=== PATIENT | male | born 1945 | race Caucasian/White ===

== ENCOUNTER 2018-05-01 02:53 | Emergency (ER) | payer OTHER, MEDICARE ==
[~2018-05-01] VITALS: Ht 182.9 cm; Wt 86.6 kg
[2018-05-01 03:04] VITALS: TEMP 36.9; Ht 182.9 cm; Wt 86.6 kg
--- NOTE | 2018-05-01 03:34 | EMERGENCY ROOM VISIT NOTE ---
History Report prepared by Jules: Javan Camargo Under the Supervision of: Dr. Sylvie Curtis D.O. First contact with patient: 03:21 Chief Complaint: ARM PAIN Stated Complaint: SEVERE PAIN, HEMATOMA RT ARM History of Present Illness The patient is a 73 year old male who presents to the Emergency Room with complaints of constant right arm pain beginning on 04/10/2018. The patient states that he has a history of lymphoma which causes him to have a weak right leg. He notes that he fell on 04/10/2018 and then again on 04/21/2018. He reports that after the second fall, his right arm began to swell. The patient states that he saw an orthopedist on 04/23/2018 and was told that he tore the flexor muscles to his 4th and 5th fingers. He notes that he cannot extend the 4th and 5th fingers on his right hand. He reports that his 4th and 5th fingers on his right hand feel colder than the others. The patient states that his right arm pain and swelling has been worsening over the last day. He notes that he is concerned about compartment syndrome, prompting his visit to the emergency department this morning. He rates his pain as a 9/10. He denies any right upper arm pain. He notes that he takes Coumadin for his atrial fibrillation. He reports that he last had his INR checked on 04/09/2018. The patient states that his INR was 2.2 at that time. He notes that he had a pacemaker placed on 03/08/2018. Source of History: patient Onset: 04/10/2018 Position: arm (right) Symptom Intensity: 9/10 Timing: constant Note: The patient also complains of a weak right leg, right arm swelling, and he states that his 4th and 5th fingers on his right hand are colder than his other fingers. He denies any right upper arm pain. Review of Systems See HPI for pertinent positives & negatives. A total of 10 systems reviewed and were otherwise negative. Past Medical & Surgical Medical Problems: (1) Atrial fibrillation (2) Fall (3) Inguinal hernia (4) Lymphoma (5) Pacemaker Surgical Problems: (1) History of meniscectomy of left knee (2) History of orchiectomy (3) History of tonsillectomy Family History Cancer Diabetes mellitus Gallbladder disease Heart disease Hypertension Social History Smoking Status: Former Smoker Marital Status: Housing Status: lives with family, lives with significant other Occupation Status: retired Current/Historical Medications Scheduled Atorvastatin (Lipitor), 40 MG PO DAILY Cholecalciferol (Vitamin D3), 1 TAB PO DAILY Digoxin (Lanoxin), 2 TAB PO DAILY Metoprolol Succ (Toprol Xl) (Toprol-Xl), 50 MG PO DAILY Testosterone (Androgel Pump), 40.5 MG TOP UD Warfarin Sodium (Coumadin), 5 MG PO 4XWK Warfarin Sodium (Coumadin), 7.5 MG PO 3XWK Scheduled PRN Hydrocodone/Acetaminophen 5MG/325MG ([place] 5MG/325MG), 1 TABLET PO Q6 PRN for Pain Allergies Coded Allergies: No Known Allergies (Unverified , 05/01/18) Physical Exam Vital Signs Date Time Temp Pulse Resp B/P (MAP) Pulse Ox O2 Delivery O2 Flow Rate FiO2 05/01/18 06:16 89 18 166/106 96 05/01/18 04:53 89 17 167/106 95 Room Air 05/01/18 03:04 36.9 82 16 166/110 99 Room Air Physical Exam HEENT: Head - normocephalic and atraumatic Pupils are equal, round, and reactive to light. Extraocular eye muscles are intact, and sclera are anicteric. Nose - moist nasal mucosa without discharge. Mouth - moist buccal mucosa. Oropharynx is nonerythematous and there is no tonsillar exudate or edema noted. Neck: Supple; no JVD, nuchal rigidity, cervical lymphadenopathy Heart: Regular rate and rhythm. There is a normal S1 and S2 with no murmurs, clicks, or gallops appreciated. Lungs: Clear to auscultation bilaterally with no wheezes, rales, or rhonchi. Abdomen: Soft, completely nontender, nondistended, with good bowel sounds. There are no palpable pulsatile masses or hepatosplenomegaly. There is no guarding, rigidity, or rebound noted. Extremities: No evidence of cyanosis or clubbing. There are easily palpable peripheral pulses. Right upper extremity has significant edema over medial aspect, large hematoma extending from elbow to wrist, exquisite tenderness to palpation along medial aspect, 4th and 5th digits are in flexed position, extremely painful with any ROM to those digits, delayed capillary refill in 4th and 5th digit, 4th and 5th digit are cold in comparison to other three digits. The patient has normal sensation in all fingers. Skin: warm and dry with good turgor and no rashes. Medical Decision & Procedures Laboratory Results 05/01/18 03:41 Red Blood Count 4.23, Mean Corpuscular Volume 97.4, Mean Corpuscular Hemoglobin 33.1, Mean Corpuscular Hemoglobin Concent 34.0, Mean Platelet Volume 10.1, Neutrophils (%) (Auto) 67.9, Lymphocytes (%) (Auto) 19.5, Monocytes (%) (Auto) 11.0, Eosinophils (%) (Auto) 1.0, Basophils (%) (Auto) 0.3, Neutrophils # (Auto ) 5.26, Lymphocytes # (Auto) 1.51, Monocytes # (Auto) 0.85, Eosinophils # (Auto ) 0.08, Basophils # (Auto) 0.02 05/01/18 03:41 Test 05/01/18 03:41 White Blood Count 7.74 K/uL (4.8-10.8) Red Blood Count 4.23 M/uL (4.7-6.1) Hemoglobin 14.0 g/dL (14.0-18.0) Hematocrit 41.2 % (42-52) Mean Corpuscular Volume 97.4 fL (80-100) Mean Corpuscular Hemoglobin 33.1 pg (25-34) Mean Corpuscular Hemoglobin Concent 34.0 g/dl (32-36) Platelet Count 206 K/uL (130-400) Mean Platelet Volume 10.1 fL (7.4-10.4) Neutrophils (%) (Auto) 67.9 % Lymphocytes (%) (Auto) 19.5 % Monocytes (%) (Auto) 11.0 % Eosinophils (%) (Auto) 1.0 % Basophils (%) (Auto) 0.3 % Neutrophils # (Auto) 5.26 K/uL (1.4-6.5) Lymphocytes # (Auto) 1.51 K/uL (1.2-3.4) Monocytes # (Auto) 0.85 K/uL (0.11-0.59) Eosinophils # (Auto) 0.08 K/uL (0-0.5) Basophils # (Auto) 0.02 K/uL (0-0.2) RDW Standard Deviation 48.4 fL (36.4-46.3) RDW Coefficient of Variation 13.7 % (11.5-14.5) Immature Granulocyte % (Auto) 0.3 % Immature Granulocyte # (Auto) 0.02 K/uL (0.00-0.02) Prothrombin Time 38.3 SECONDS (9.0-12.0) Prothromb Time International Ratio 3.7 (0.9-1.1) Activated Partial Thromboplast Time 46.4 SECONDS (21.0-31.0) Partial Thromboplastin Ratio 1.8 Anion Gap 6.0 mmol/L (3-11) Est Creatinine Clear Calc Drug Dose 67.3 ml/min Estimated GFR () 78.2 Estimated GFR (Non- 67.5 BUN/Creatinine Ratio 30.9 (10-20) Calcium Level 9.1 mg/dl (8.5-10.1) Laboratory results per my review. Medications Administered Medications (Trade) Dose Ordered Sig/Nancy Route Start Time Stop Time Status Last Admin Dose Admin Hydromorphone HCl (Dilaudid Inj) 1 mg NOW STAT IV 05/01/18 03:35 05/01/18 03:36 DC 05/01/18 03:48 1 MG Hydromorphone HCl (Dilaudid Inj) 0.5 mg NOW STAT IV 05/01/18 04:57 05/01/18 04:58 DC 05/01/18 05:18 0.5 MG Procedure Medications Administered: Dilaudid Inj 1mg IV, Dilaudid Inj 0.5mg IV. ED Course 0321: The patient was evaluated in room B9. A complete history and physical examination were performed. Nursing notes and previous electronic medical records were reviewed. IV lock was established and labs were drawn as above. 0335: Dilaudid Inj 1mg IV 0429: I reevaluated and updated the patient. 0433: I discussed the patient's case with Dr. Rivers - Orthopedic Surgery, [facility]. He will come to see the patient. 0456: I rechecked the patient. He rates his pain as a 5/10 and will get another 0.5mg of Dilaudid. 0457: Dilaudid Inj 0.5mg IV 0547: I rediscussed the patient's case with Dr. Rivers. He evaluated the patient and does not believe that he has compartment syndrome. He states that he can see the patient in his office. I am going to prescribe the patient pain medication and will do a PDMP search on him. He notes that he has taken Vicodin in the past. He was instructed to skip his next two doses of Coumadin and then have his INR checked on Sunday. 0558: I performed a PDMP search on the patient. There were no issues. 0605: Upon reevaluation, the patient was stable. I discussed findings and results with him. He verbalized agreement of the treatment plan. The patient was discharged home. Medical Decision The patient is a 73 year old male who presents to the Emergency Room with complaints of constant right arm pain beginning on 04/10/2018. Differential diagnoses include: compartment syndrome, muscle tear, supra therapeutic INR, and anemia. Lab Results Show: INR 3.7. BUN 34. Creatinine 1. Glucose 106. Stable H&H. No leukocytosis. This is a 73-year-old male patient presents to the emergency department with severe pain over the medial right forearm. Unfortunately, the patient is suffered 2 separate falls where he injured that right forearm including a muscle tear on the medial aspect of the forearm affecting the flexors of the fourth and fifth digits. Last fall was 10 days ago. Since that time, he has had an expanding hematoma. The patient suddenly developed increased pain over the medial aspect of the right forearm and exquisite tenderness with any movement of the fourth and fifth digits. There was some decreased capillary refill to those 2 digits and those fingers were cold to the touch. Dr. Rivers evaluated the patient and did not feel that his symptoms and findings represented a compartment syndrome. The patient was able to get moderate pain relief with the analgesia that was prescribed. He will be discharged home. His INR was supratherapeutic. He was told to hold his next 2 doses and have the INR rechecked on Sunday before taking that tonight 's dose. He was given a prescription for [place]. He was instructed to follow- up with Dr. Rivers's office for any worsening symptoms. [place] Drug Monitoring Program Search Results: patient reviewed within database, no issues identified Medication Reconcilliation Current Medication List: was personally reviewed by me Blood Pressure Screening Patient's blood pressure: Elevated blood pressure Blood pressure disposition: Elevated BP felt to be situational Consults Time Called: [phone] Consulting Physician: Dr. Rivers - Orthopedic Surgery, [facility] Returned Call: [phone] I discussed the patient's case with Dr. Rivers. He will come down to see the patient. 0547: I rediscussed the patient's case with Dr. Rivers. He was unaware that we had a pressure monitor in the emergency department. He evaluated the patient and does not believe that he has compartment syndrome. He states that he can see the patient in his office. Impression Primary Impression: Traumatic hematoma of right forearm Additional Impression: Supratherapeutic INR Scribe Attestation The scribe's documentation has been prepared under my direction and personally reviewed by me in its entirety. I confirm that the note above accurately reflects all work, treatment, procedures, and medical decision making performed by me. Departure Information Dispostion Home / Self-Care Prescriptions Hydrocodone/Acetaminophen 5MG/325MG ([place] 5MG/325MG) Tab 1 TABLET PO Q6 Y for Pain, #20 TAB Prov: Sylvie Curtis D.O. 05/01/18 Referrals No Doctor, Assigned (PCP) Forms HOME CARE DOCUMENTATION FORM, IMPORTANT VISIT INFORMATION Patient Instructions My [facility] Additional Instructions Rest with your right arm elevated. No coumadin on Sun. or . Have INR rechecked on Sunday. [place] - 1-2 tabs. every 6 hours for pain Problem Qualifiers Primary Impression: Traumatic hematoma of right forearm Encounter type: initial encounter Qualified Codes: S50.11XA - Contusion of right forearm, initial encounter
[2018-05-01] MEDS ORDERED: HYDROmorphone INJ 1 MG/ML SYR IV STA (03:35)
[2018-05-01 03:54] LABS: BASO % 0.3 %; BASO ABS # 0.02 K/uL (0-0.2); EOS ABS # 0.08 K/uL (0-0.5); HEMATOCRIT 41.2 % (42-52); IG# 0.02 K/uL (0.00-0.02); LYMPH % 19.5 %; LYMPH ABS # 1.51 K/uL (1.2-3.4); MEAN CELL VOLUME 97.4 fL (80-100); MEAN CORPUSCULAR HEMOGLOBIN 33.1 pg (25-34); MEAN PLATELET VOLUME 10.1 fL (7.4-10.4); MONO ABS # 0.85 K/uL (0.11-0.59); NEUT % 67.9 %; NEUT ABS # 5.26 K/uL (1.4-6.5); PLATELET COUNT 206 K/uL (130-400); RED CELL DISTRIBUTION WIDTH CV 13.7 % (11.5-14.5); RED CELL DISTRIBUTION WIDTH SD 48.4 fL (36.4-46.3); WHITE BLOOD COUNT 7.74 K/uL (4.8-10.8)
[2018-05-01 04:10] LABS: CALCIUM 9.1 mg/dl (8.5-10.1); CREATININE 1.09 mg/dl (0.60-1.40); POTASSIUM 4.1 mmol/L (3.5-5.1)
[2018-05-01 04:34] LABS: PTT PATIENT 46.4 SECONDS (21.0-31.0)
[2018-05-01 04:42] LABS: INR 3.7 (0.9-1.1)
[2018-05-01] MEDS ORDERED: HYDROmorphone INJ 0.5 MG/0.5 ML SYR IV STA (04:57)
[2018-05-01] MEDS ORDERED: CHOL1000 PO (05:28)
[2018-05-01] MEDS ORDERED: ATOR-24 PO (05:28)
[2018-05-01] MEDS ORDERED: METO50TA8 PO (05:29)
[2018-05-01] MEDS ORDERED: TEST5GEL TOP (05:30)
[2018-05-01] MEDS ORDERED: WARF7.5T PO (05:32)
[2018-05-01] MEDS ORDERED: WARF5TAB90 PO (05:32)
[2018-05-01] MEDS ORDERED: DIGO-27 PO (05:33)
[2018-05-01] MEDS ORDERED: HYDR-5688 PO (05:56)
--- NOTE | 2018-05-01 06:06 | ORTHOPEDIC CONSULTATION ---
DATE OF CONSULTATION: 05/01/2018 CHIEF COMPLAINT: Hematoma of the right forearm. HISTORY OF PRESENT ILLNESS: David is a pleasant 73-year-old male who initially fell back on 04/10/2018. He had a strain and hematoma of his right forearm. The swelling was not too bad. He did see an orthopedist in [place] who diagnosed him with a flexor pronator strain possible muscle tear. Unfortunately, he fell again about 2 weeks ago. Since that time, the swelling and ecchymosis of his right forearm has gotten much worse. It is sore during the day, but at night the pressure and the pain was causing inability for him to sleep. He presents to the Emergency Room with his for evaluation. He is on Coumadin and his INR is 3.7. The Emergency Room was concerned for possible compartment syndrome so orthopedics was consulted for evaluation. PAST MEDICAL HISTORY: Significant for lymphoma in 1992 and 1993, atrial fibrillation, and pacemaker placement 2017. PAST SURGICAL HISTORY: Significant for tonsillectomy 1966, hernia repair in 1989, left knee partial meniscectomy in 1989, orchiectomy in 1993, bilateral total knee arthroplasties in 2009, pacemaker placement in 2017, cardiac ablation in 2009. MEDICATIONS: Lipitor, vitamin D, digoxin, Toprol, AndroGel, Coumadin. ALLERGIES: No known drug allergies. SOCIAL HISTORY: He is a retired spinner operator from the [employer] and presents to the Emergency Room with his . FAMILY HISTORY: Denies. REVIEW OF SYSTEMS: He complains of right forearm pain and swelling. All other pertinent review of systems are negative. PHYSICAL EXAMINATION: RIGHT FOREARM: There was a lot of ecchymosis mostly in the volar compartment of the right forearm. He is able to do full flexion and extension of his elbow and about 80% flexion and extension of his wrist with minimal pain. He can almost make a full fist. He has full extension of his fingers, full abduction and adduction of his fingers. He does not have any decreased sensation of his right hand. He has good capillary refill. His volar compartment is fairly supple. I am able to push on it fairly hard without too much pain. He is obviously in discomfort. There were no fracture blisters, no signs of compartment syndrome. LABORATORY DATA: Show an INR of 3.7, glucose 106, and H and H of 14.0 and 41.2. IMPRESSION: Hematoma of the right forearm. PLAN: I see no signs of compartment syndrome at this point. He has a hematoma of his right forearm. It is uncomfortable because of that. The body will absorb this organically on its own. We will give him some pain medications to help him sleep at night. I did go over the signs of compartment syndrome with him such as severe tightness of the compartment or any loss in sensation of his fingers or loss of motion of his wrist or his hand. I told him that any of these symptoms arise, to please call my office immediately or return to the Emergency Room. He understands this. I do want to see him in my office in 2 weeks for followup. He is going to contact the Coumadin clinic about his elevated INR. My office phone number is [phone].
[2018-05-01 06:16] VITALS: BP 166/106; PULSE 89; O2SAT 96
== END 2018-05-01 06:16 | disposition home or self-care (01) ==
LOC: C.EDB 02:54
DX: S50.11XA Contusion of right forearm, initial encounter (principal); W19.XXXA Unspecified fall, initial encounter; I48.91 Unspecified atrial fibrillation; R79.1 Abnormal coagulation profile; Z95.0 Presence of cardiac pacemaker; Z85.72 Personal history of non-Hodgkin lymphomas; Z79.01 Long term (current) use of anticoagulants; Z79.899 Other long term (current) drug therapy; Z90.79 Acquired absence of other genital organ(s); Z96.653 Presence of artificial knee joint, bilateral; Z87.891 Personal history of nicotine dependence; Z80.9 Family history of malignant neoplasm, unspecified; Z83.3 Family history of diabetes mellitus; Z83.79 Family history of other diseases of the digestive system; Z82.49 Family history of ischemic heart disease and other diseases of the circulatory system